=== PATIENT | male | born 1965 | race Caucasian/White ===

== ENCOUNTER 2018-12-06 18:45 | Emergency (ER) | payer BC, OTHER ==
--- NOTE | 2018-12-06 20:06 | ER ---
Nurse's Notes [facility] Name: Jean Pierre Cordero Age: 53 yrs Sex: Male : 1965 Arrival Date: 12/06/2018 Time: 18:49 Bed 25 Private MD: Diagnosis: Cellulitis of right great toe. Presentation: 12/06 19:13 Presenting complaint: Patient states: My right great toe has been swollen, started la1 Wednesday and is getting much worse, Seen at [facility] on Wednesday and given clinda and bacrtoban and it is getting worse. Transition of care: patient was not received from another setting of care. Onset of symptoms was December 06, 2018. Risk Assessment: Do you want to hurt yourself or someone else? Patient reports no desire to harm self or others. Initial Sepsis Screen: Does the patient meet any 2 criteria? No. Patient's initial sepsis screen is negative. Does the patient have a suspected source of infection? No. Patient's initial sepsis screen is negative. Care prior to arrival: None. 19:13 Method Of Arrival: Ambulatory la1 19:13 Acuity: EMMA 3 la1 Triage Assessment: 19:48 General: Appears in no apparent distress. comfortable, Behavior is calm, cooperative, ch appropriate for age. Pain: Complains of pain in right first toe and Right first toenail Pain currently is 7 out of 10 on a pain scale. Pain began gradually. Neuro: No deficits noted. Cardiovascular: No deficits noted. Respiratory: No deficits noted. GI: No signs and/or symptoms were reported involving the gastrointestinal system. : No signs and/or symptoms were reported regarding the genitourinary system. Derm: Skin is pink, warm \T\ dry. Wound noted medial aspect of right toes, right first toe and Right first toenail Wound is pt has swelling and redness to R great toe. R toe is twice the size of the left, dark red, entire toe up to foot. pt reports he is on antibiotics now. Historical: - Allergies: 19:14 No Known Allergies; la1 - PMHx: 19:14 None; la1 - Immunization history:: Adult Immunizations up to date. - Social history:: Smoking status: Patient uses tobacco products, smokes one pack cigarettes per day. - Ebola Screening: : No symptoms or risks identified at this time. Screenin:07 Abuse screen: Denies threats or abuse. Denies injuries from another. Nutritional screening: No deficits noted. Tuberculosis screening: No symptoms or risk factors identified. Fall Risk None identified. Assessment: 20:07 Reassessment: Patient appears in no apparent distress at this time. No changes from previously documented assessment. Patient and/or family updated on plan of care and expected duration. Pain level reassessed. Patient is alert, oriented x 3, equal unlabored respirations, skin warm/dry/pink. Vital Signs: 19:14 BP 142 / 89; Pulse 112; Resp 16; Temp 98.7; Pulse Ox 98% on R/A; Weight 99.79 kg; la1 Height 6 ft. 1 in. (185.42 cm); 19:14 Body Mass Index 29.03 (99.79 kg, 185.42 cm) ma1 ED Course: 18:49 Patient arrived in ED. mr 19:14 Aamir Askew MD is Attending Physician. ps1 19:14 Triage completed. la1 19:15 Arm band placed on left wrist. la1 19:31 Lesley Hillman, RN is Primary Nurse. ch 20:07 No apparent distress. Resting quietly. ch 20:07 Patient has correct armband on for positive identification. Bed in low position. Call light in reach. Side rails up X 1. 20:07 No provider procedures requiring assistance completed. Patient did not have IV access ch during this emergency room visit. Administered Medications: No medications were administered Outcome: 20:05 Discharge ordered by . ps1 20:07 Discharged to home ambulatory, with family. 20:07 Condition: unchanged 20:07 Discharge instructions given to patient, family, Instructed on discharge instructions, follow up and referral plans. medication usage, wound care, Demonstrated understanding of instructions, follow-up care, medications, wound care. 20:13 Patient left the ED. Signatures: Lesley Hillman, RN DEXTER SinclairaVeronica Lee, RN RN [facility] Aamir Askew MD MD ps1
--- NOTE | 2018-12-06 20:07 | EDPHYS ---
Physician Documentation [facility] Name: Jean Pierre Cordero Age: 53 yrs Sex: Male : 1965 Arrival Date: 12/06/2018 Time: 18:49 Bed 25 Private MD: ED Physician Aamir Askew HPI: 12/06 19:58 This 53 yrs old Male presents to ER via Ambulatory with complaints of Toe ps1 swelling. 19:58 patient states that he has a history of ingrown toe nails. He self treated at home and ps1 noticed a paronychia type infection. He went to urgent care yesterday for evaluation and was prescribed clindamycin and bactroban. He has taken 3 doses. He states that the inflammation is extending the length of his toe that is worse than yesterday. Pain is rated as moderate and worse with weight bearing. No fever. . Historical: - Allergies: 19:14 No Known Allergies; la1 - PMHx: 19:14 None; la1 - Immunization history:: Adult Immunizations up to date. - Social history:: Smoking status: Patient uses tobacco products, smokes one pack cigarettes per day. - Ebola Screening: : No symptoms or risks identified at this time. ROS: 19:58 Constitutional: Negative for fever, chills, and weight loss, Eyes: Negative for injury, ps1 pain, redness, and discharge, Cardiovascular: Negative for chest pain, palpitations, and edema, Respiratory: Negative for shortness of breath, cough, wheezing, and pleuritic chest pain, Abdomen/GI: Negative for abdominal pain, nausea, vomiting, diarrhea, and constipation, MS/Extremity: Negative for injury and deformity, Neuro: Negative for headache, weakness, numbness, tingling, and seizure, Psych: Negative for depression, anxiety, suicide ideation, homicidal ideation, and hallucinations. 19:58 Skin: Positive for cellulitis, of the right first toe. Exam: 19:58 Constitutional: This is a well developed, well nourished patient who is awake, alert, ps1 and in no acute distress. Head/Face: Normocephalic, atraumatic. Eyes: Pupils equal round and reactive to light, extra-ocular motions intact. Lids and lashes normal. Conjunctiva and sclera are non-icteric and not injected. Chest/axilla: Normal chest wall appearance and motion. Nontender with no deformity. No lesions are appreciated. Cardiovascular: Regular rate and rhythm. No gallops, murmurs, or rubs. Normal PMI, no JVD. No pulse deficits. Respiratory: Lungs have equal breath sounds bilaterally, clear to auscultation and percussion. No rales, rhonchi or wheezes noted. No increased work of breathing, no retractions or nasal flaring. Abdomen/GI: Soft, non-tender, with normal bowel sounds. No distension or tympany. No guarding or rebound. No evidence of tenderness throughout. MS/ Extremity: Pulses equal, no cyanosis. Neurovascular intact. Full, normal range of motion. Neuro: Awake and alert, GCS 15, oriented to person, place, time, and situation. Cranial nerves II-XII grossly intact. Sensory grossly intact. 19:58 Skin: Appearance: normal except for affected area, abscess, not appreciated, cellulitis, that is moderate, on the right first toe. Vital Signs: 19:14 BP 142 / 89; Pulse 112; Resp 16; Temp 98.7; Pulse Ox 98% on R/A; Weight 99.79 kg; la1 Height 6 ft. 1 in. (185.42 cm); 19:14 Body Mass Index 29.03 (99.79 kg, 185.42 cm) la1 MDM: 20:01 Data reviewed: vital signs, nurses notes, and as a result, I will discharge patient. ps1 Counseling: I had a detailed discussion with the patient and/or guardian regarding: the historical points, exam findings, and any diagnostic results supporting the discharge/admit diagnosis, to return to the emergency department if symptoms worsen or persist or if there are any questions or concerns that arise at home. ED course: Patient presenting with cellulitis of right great toe. Patient has had 3 doses of abx. He was not manifesting systemic symptoms and HR in triage had normalized in room during examination. He does not have fever and has an appropriate prescription for his diagnosis. Discussed at length with the patient options including I\T\D and decided that we would angelo the location and observe for determination of efficacy of the antibiotics that he just started. Strong precautions given to patient. Verbalized understanding and marked area. Salt water soaks and air dry. . 20:05 Patient medically screened. ps1 Administered Medications: No medications were administered Disposition: 12/06/18 20:05 Discharged to Home. Impression: Cellulitis of right great toe. . - Condition is Stable. - Discharge Instructions: Cellulitis, Adult. - Medication Reconciliation Form, Thank You Letter, Antibiotic Education, Prescription Opioid Use form. - Follow up: Private Physician; When: As needed; Reason: Further diagnostic work-up, Recheck today's complaints, Continuance of care, Re-evaluation by your physician. Follow up: Emergency Department; When: As needed; Reason: Fever > 102 F, Worsening of condition. - Problem is an ongoing problem. - Symptoms are unchanged. Signatures: Lesley Hillman RN RN ch Robby William RN RN la1 Aamir Askew MD MD ps1 Corrections: (The following items were deleted from the chart) 20:13 20:05 12/06/2018 20:05 Discharged to Home. Impression: Cellulitis of right great toe. . ch Condition is Stable. Forms are Medication Reconciliation Form, Thank You Letter, Antibiotic Education, Prescription Opioid Use. Follow up: Private Physician; When: As needed; Reason: Further diagnostic work-up, Recheck today's complaints, Continuance of care, Re-evaluation by your physician. Follow up: Emergency Department; When: As needed; Reason: Fever > 102 F, Worsening of condition. Problem is an ongoing problem. Symptoms are unchanged. ps1
[2018-12-06 21:26] VITALS: BP 142/89; TEMP 98.7; O2SAT 98
== END 2018-12-06 20:13 | disposition home or self-care (01) ==
LOC: ER 18:45
DX: L03.031 Cellulitis of right toe (principal); F17.210 Nicotine dependence, cigarettes, uncomplicated
CPT/HCPCS: 99281

== ENCOUNTER 2018-12-10 11:12 | Inpatient (IN) | payer BC ==
[2018-12-10 12:17] LABS: Absolute Lymphocytes (CBC) 2.5 K/uL (0.7-4.9); Hematocrit 43.7 % (39.6-49.0); Lymphocytes % 18.3 % (15.3-44.8); MPV 7.4 fL (7.6-11.3); RBC Red Blood Cell Count 5.01 M/uL (4.33-5.43)
--- NOTE | 2018-12-10 12:24 | RAD REPORT ---
EXAM DESCRIPTION: RAD - Foot Right 2 View - 12/10/2018 12:16 pm CLINICAL HISTORY: r/o osteo Great toe pain and swelling COMPARISON: No comparisons FINDINGS: The distal phalanx of the great toe shows areas of demineralization compatible with osteom yelitis. Moderate soft tissue swelling. No subcutaneous gas.
[2018-12-10 12:27] LABS: BUN Blood Urea Nitrogen 8 mg/dL (7-18); Bicarbonate 26 mmol/L (21-32); Glucose Level 324 mg/dL (74-106); Potassium 3.7 mmol/L (3.5-5.1); Sodium Level 134 mmol/L (136-145)
--- NOTE | 2018-12-10 12:35 | EDPHYS ---
Physician Documentation [facility] Name: Jean Pierre Cordero Age: 53 yrs Sex: Male : 1965 Arrival Date: 12/10/2018 Time: 11:14 Bed 16 Private MD: ED Physician Jack Curtis HPI: 12/10 12:49 This 53 yrs old Male presents to ER via Ambulatory with complaints of Toe kb Infection. 12:50 The patient presents with cellulitis of the dorsum of right foot and right first toe. kb Description: erythematous, swollen, warm. Onset: The symptoms/episode began/occurred 7 day(s) ago. Possible cause(s): unknown. Associated signs and symptoms: Pertinent positives: drainage, erythema, swelling. Modifying factors: the symptoms are alleviated by nothing, the symptoms are aggravated by nothing. Severity of symptoms: At their worst the symptoms were moderate, in the emergency department the symptoms are unchanged. The patient has not experienced similar symptoms in the past. The patient has been recently seen at the [facility], this week, for similar complaints. Pt reports he started getting an infection in his toe, went to a clinic and was started on Clindamycin on Wednesday. Came here on Wednesday, but the dr said he needed to give the antibiotics more time to work and evelin a line around border. Pt came today because redness is out of border drawn by and now it is draining.. Historical: - Allergies: 12:30 No Known Allergies; ph - PMHx: 12:30 Pneumonia; ph - Immunization history:: Adult Immunizations unknown. - Social history:: Smoking status: Patient uses tobacco products, cigars. - Ebola Screening: : No symptoms or risks identified at this time. ROS: 12:46 Constitutional: Negative for fever, chills, and weight loss, Neck: Negative for injury, kb pain, and swelling, Cardiovascular: Negative for chest pain, palpitations, and edema, Respiratory: Negative for shortness of breath, cough, wheezing, and pleuritic chest pain, Abdomen/GI: Negative for abdominal pain, nausea, vomiting, diarrhea, and constipation, Neuro: Negative for headache, weakness, numbness, tingling, and seizure. 12:46 MS/extremity: Positive for erythema, pain, swelling, tenderness, warmth, of the dorsum of right foot and right first toe. Exam: 12:48 Constitutional: This is a well developed, well nourished patient who is awake, alert, kb and in no acute distress. Head/Face: Normocephalic, atraumatic. ENT: Nares patent. No nasal discharge, no septal abnormalities noted. Tympanic membranes are normal and external auditory canals are clear. Oropharynx with no redness, swelling, or masses, exudates, or evidence of obstruction, uvula midline. Mucous membranes moist. Neck: Trachea midline, no thyromegaly or masses palpated, and no cervical lymphadenopathy. Supple, full range of motion without nuchal rigidity, or vertebral point tenderness. No Meningismus. Chest/axilla: Normal chest wall appearance and motion. Nontender with no deformity. No lesions are appreciated. Cardiovascular: Regular rate and rhythm with a normal S1 and S2. No gallops, murmurs, or rubs. Normal PMI, no JVD. No pulse deficits. Respiratory: Lungs have equal breath sounds bilaterally, clear to auscultation and percussion. No rales, rhonchi or wheezes noted. No increased work of breathing, no retractions or nasal flaring. Abdomen/GI: Soft, non-tender, with normal bowel sounds. No distension or tympany. No guarding or rebound. No evidence of tenderness throughout. Neuro: Awake and alert, GCS 15, oriented to person, place, time, and situation. Cranial nerves II-XII grossly intact. Motor strength 5/5 in all extremities. Sensory grossly intact. Cerebellar exam normal. Normal gait. 12:48 Skin: cellulitis, that is moderate, on the dorsum of right foot and right first toe. Vital Signs: 12:28 BP 150 / 96; Pulse 91; Resp 18; Temp 98.8(O); Pulse Ox 97% on R/A; Weight 98.43 kg; ph Height 6 ft. 1 in. (185.42 cm); Pain 0/10; 13:30 BP 147 / 92; Pulse 87; Resp 16; Pulse Ox 97% on R/A; ph 14:39 BP 143 / 91; Pulse 83; Resp 18; Temp 98.6; Pulse Ox 97% on R/A; ph 12:28 Body Mass Index 28.63 (98.43 kg, 185.42 cm) ph MDM: 11:35 Patient medically screened. kb 11:47 Data reviewed: vital signs, nurses notes. Data interpreted: Pulse oximetry: on room air kb is 100 %. Interpretation: normal. 12:30 Counseling: I had a detailed discussion with the patient and/or guardian regarding: the kb historical points, exam findings, and any diagnostic results supporting the discharge/admit diagnosis, lab results, radiology results, the need for further work-up and treatment in the hospital. 12/10 11:39 Order name: CBC with Diff; Complete Time: 12:19 kb 12/10 11:39 Order name: Basic Metabolic Panel; Complete Time: 12:28 kb 12/10 11:39 Order name: Blood Culture Adult (2) kb 12/10 11:39 Order name: Procalcitonin; Complete Time: 12:55 kb 12/10 11:39 Order name: Lactate; Complete Time: 12:35 kb 12/10 11:41 Order name: Hemoglobin A1c kb 12/10 11:39 Order name: IV Start; Complete Time: 12:02 kb 12/10 11:41 Order name: Foot Right 2 View XRAY; Complete Time: 12:27 kb Administered Medications: 11:41 CANCELLED (Physician Discretion): Zosyn 3.375 grams IVPB once over 60 mins; (mix in NS kb 100 mL) 12:50 Drug: Cefepime 1 grams Route: IVPB; Rate: 200 ml/hr; Infused Over: 30 mins; Site: left ph forearm; 13:40 Follow up: Response: No adverse reaction; IV Status: Completed infusion ph 13:44 Drug: vancoMYCIN 1 grams Route: IVPB; Infused Over: 2 hrs; Site: left forearm; ph 14:37 Follow up: Response: No adverse reaction; IV Status: Infusion continued upon admission ph Disposition: 15:12 Co-signature as Attending Physician, Jack Curtis MD I agree with the assessment and kdr plan of care. Disposition: 12/10/18 12:35 Hospitalization ordered by Balwinder Osborn for Inpatient Admission. Preliminary diagnosis are Osteomyelitis, unspecified, Cellulitis of right toe - failed outpatient treatment. - Bed requested for Telemetry/MedSurg (Inpatient). - Status is Inpatient Admission. ph - Condition is Stable. - Problem is new. - Symptoms are unchanged. UTI on Admission? No Signatures: Dispatcher [employer] [facility] Marta Martinez, REAL ESTATE APPRAISER-C REAL ESTATE APPRAISER-Ckb Jack Curtis MD MD kdr Solis, Maria ms Hall, Patricia RN RN ph Corrections: (The following items were deleted from the chart) 11:41 11:41 Zosyn 3.375 grams IVPB once over 60 mins; (mix in NS 100 mL) ordered. kb kb 14:31 12:35 Hospitalization Ordered by Balwinder Osborn for Inpatient Admission. Preliminary ms diagnosis is Osteomyelitis, unspecified; Cellulitis of right toe - failed outpatient treatment. Bed requested for Telemetry/MedSurg (Inpatient). Status is Inpatient Admission. Condition is Stable. Problem is new. Symptoms are unchanged. UTI on Admission? No. kb 15:02 14:31 12/10/2018 12:35 Hospitalization Ordered by Balwinder Osborn for Inpatient ph Admission. Preliminary diagnosis is Osteomyelitis, unspecified; Cellulitis of right toe - failed outpatient treatment. Bed requested for Telemetry/MedSurg (Inpatient). Status is Inpatient Admission. Condition is Stable. Problem is new. Symptoms are unchanged. UTI on Admission? No. ms
--- NOTE | 2018-12-10 12:35 | ER ---
Nurse's Notes [facility] Name: Jean Pierre Cordero Age: 53 yrs Sex: Male : 1965 Arrival Date: 12/10/2018 Time: 11:14 Bed 16 Private MD: Diagnosis: Osteomyelitis, unspecified;Cellulitis of right toe-failed outpatient treatment Presentation: 12/10 11:40 Presenting complaint: Patient states: Wound to R great toe, states, " It started w/ an ph ingrown toenail, I took antibiotics by mouth but they aren't helping." Reports fever, chills and nausea. Transition of care: patient was not received from another setting of care. Onset of symptoms was December 10, 2018. Risk Assessment: Do you want to hurt yourself or someone else? Patient reports no desire to harm self or others. Initial Sepsis Screen: Does the patient meet any 2 criteria? No. Patient's initial sepsis screen is negative. Does the patient have a suspected source of infection? Yes: Skin breakdown/wound. Care prior to arrival: None. 11:40 Method Of Arrival: Ambulatory ph 11:40 Acuity: EMMA 3 ph Historical: - Allergies: 12:30 No Known Allergies; ph - PMHx: 12:30 Pneumonia; ph - Immunization history:: Adult Immunizations unknown. - Social history:: Smoking status: Patient uses tobacco products, cigars. - Ebola Screening: : No symptoms or risks identified at this time. Screenin:31 Abuse screen: Denies threats or abuse. Denies injuries from another. Nutritional ph screening: No deficits noted. Tuberculosis screening: No symptoms or risk factors identified. Fall Risk None identified. Assessment: 11:45 General: Appears in no apparent distress. comfortable, well groomed, Behavior is calm, ph cooperative, appropriate for age, Reports chills for fever for. Pain: Denies pain. Neuro: Level of Consciousness is awake, alert, obeys commands, Oriented to person, place, time, situation. Cardiovascular: Capillary refill < 3 seconds in bilateral fingers Patient's skin is warm and dry. Respiratory: Airway is patent Respiratory effort is even, unlabored, Respiratory pattern is regular, symmetrical. GI: Reports nausea, Patient currently denies abdominal pain, diarrhea, vomiting. Derm: Skin is healthy with good turgor, Skin is pink, warm \\T\\ dry. Wound noted right first toe and Right first toenail. Musculoskeletal: Swelling present in right first toe and Right first toenail. 12:36 Reassessment: Patient appears in no apparent distress at this time. Patient and/or ph family updated on plan of care and expected duration. Pain level reassessed. Patient is alert, oriented x 3, equal unlabored respirations, skin warm/dry/pink. Pt ambulated to restroom w/ steady gait, awaiting room assignment. 12:50 Reassessment: Patient appears in no apparent distress at this time. Patient is alert, ph oriented x 3, equal unlabored respirations, skin warm/dry/pink. Hospitalist at bedside. 14:00 Reassessment: Patient appears in no apparent distress at this time. Patient and/or ph family updated on plan of care and expected duration. Pain level reassessed. Patient is alert, oriented x 3, equal unlabored respirations, skin warm/dry/pink. 14:42 Reassessment: Patient appears in no apparent distress at this time. Patient and/or ph family updated on plan of care and expected duration. Pain level reassessed. Patient is alert, oriented x 3, equal unlabored respirations, skin warm/dry/pink. Report called to [place]. Vital Signs: 12:28 BP 150 / 96; Pulse 91; Resp 18; Temp 98.8(O); Pulse Ox 97% on R/A; Weight 98.43 kg; ph Height 6 ft. 1 in. (185.42 cm); Pain 0/10; 13:30 BP 147 / 92; Pulse 87; Resp 16; Pulse Ox 97% on R/A; ph 14:39 BP 143 / 91; Pulse 83; Resp 18; Temp 98.6; Pulse Ox 97% on R/A; ph 12:28 Body Mass Index 28.63 (98.43 kg, 185.42 cm) ph ED Course: 11:14 Patient arrived in ED. mr 11:35 Marta Martinez [facility]-C [facility]. kb 11:35 Jack Curtis MD is Attending Physician. kb 11:37 Holly Law RN is Primary Nurse. ph 12:00 Inserted saline lock: 20 gauge in left forearm, using aseptic technique. Blood ph collected. 12:16 Foot Right 2 View XRAY In Process Unspecified. EDMS 12:28 Triage completed. ph 12:31 Arm band placed on Patient placed in an exam room, on a stretcher. ph 12:31 Patient has correct armband on for positive identification. Bed in low position. Call ph light in reach. Side rails up X 1. Pulse ox on. NIBP on. Door closed. Noise minimized. 12:35 Balwinder Osborn is Hospitalizing Provider. kb 14:35 No provider procedures requiring assistance completed. Patient admitted, IV remains in ph place. Administered Medications: 11:41 CANCELLED (Physician Discretion): Zosyn 3.375 grams IVPB once over 60 mins; (mix in NS kb 100 mL) 12:50 Drug: Cefepime 1 grams Route: IVPB; Rate: 200 ml/hr; Infused Over: 30 mins; Site: left ph forearm; 13:40 Follow up: Response: No adverse reaction; IV Status: Completed infusion ph 13:44 Drug: vancoMYCIN 1 grams Route: IVPB; Infused Over: 2 hrs; Site: left forearm; ph 14:37 Follow up: Response: No adverse reaction; IV Status: Infusion continued upon admission ph Outcome: 12:35 Decision to Hospitalize by Provider. kb 14:38 Admitted to Med/surg accompanied by tech, via wheelchair, room 207, with chart. ph 14:38 Condition: stable 14:38 Instructed on the need for admit. 15:02 Patient left the ED. ph Signatures: Dispatcher [employer] [facility] Marta Martinez, PEDIGREE RESEARCHER-Ramón PEDIGREE RESEARCHER-Shayan Victoriano Veronica ingram Holly Law RN RN ph Corrections: (The following items were deleted from the chart) 12:33 11:40 Presenting complaint: Patient states: Wound to L great toe, states, " It started ph w/ an ingrown toenail, I took antibiotics by mouth but they aren't helping." Reports fever, chills and nausea ph
[2018-12-10] MEDS ORDERED: CEFEPIME 1 GM/100 ML BAG IV ONE (12:42)
[2018-12-10] MEDS ORDERED: VANCOMYCIN/NS 1 gm 1 GM/250 ML BAG IVPB ONE (13:00)
--- NOTE | 2018-12-10 13:04 | P.HP ---
Certification for Inpatient With expected LOS: >2 Midnights Practitioner: I am a practitioner with admitting privileges, knowledge of patient current condition, hospital course, and medical plan of care. Services: Services provided to patient in accordance with Admission requirements found in Title 42 Section 412.3 of the Code of Federal Regulations Patient History Date of Service: 12/10/18 Reason for admission: Swollen tender right great toe History of Present Illness: 53-year-old gentleman with a history of hypertension presents to the emergency department with a complaint of redness and swelling of the right great toe which has been present for about 1 week. Patient was prescribed clindamycin for cellulitis at an urgent Care. His toe got worse and stated he presented to an emergency department 4 days ago and was told to continue the clindamycin. He reported to the emergency department because he stole kept getting worse and started discharging. In the ED, patient noted to have mild leukocytosis, afebrile. X-ray of the right foot reports demineralization of the distal phalanx of the right great toe consistent with osteomyelitis. Also noted elevated blood sugar. Patient denies any history of diabetes. He is admitted for further management. Allergies No Known Allergies Allergy (Verified 12/29/12 16:00) Home Medications: Cefuroxime Axetil [Ceftin] 500 mg PO BID #14 tablet 01/06/13 predniSONE [Deltasone] 20 mg PO DAILY #14 tab 01/06/13 - Past Medical/Surgical History Diabetic: No -: HTN -: Pneumonia - Family History Family History: Reviewed- Non-Contributory - Social History Smoking Status: Current some day smoker (Smokes cigar) Alcohol use: No CD- Drugs: No Caffeine use: Yes Review of Systems Other: General: No fever, no malaise, no unintentional weight loss. Eyes: No eye discharge, Respiratory: No cough, no shortness of breath. CVS: No chest pain, no palpitation, no lightheadedness. GI: No abdominal pain, no nausea no vomit, no constipation, no diarrhea. Genitourinary: No dysuria, no urinary frequency, no incontinence, no hematuria. Musculoskeletal: No joint pains, no gait instability. Neurology: No headache, no asymmetric, weakness, no problem with swallowing. Except as documented, all other systems reviewed and negative. Physical Examination - Physical Exam General: Alert, In no apparent distress, Oriented x3 HEENT: Atraumatic, Normocephalic, Mucous membr. moist/pink Neck: Supple, JVD not distended, No Thyromegaly Respiratory: Clear to auscultation bilaterally, Normal air movement Cardiovascular: No edema, Normal pulses (Good dorsalis pedis pulses bilaterally. ), Regular rate/rhythm, Normal S1 S2, No murmurs Capillary refill: <2 Seconds Gastrointestinal: Normal bowel sounds, Soft and benign, Non-distended, No tenderness Musculoskeletal: Swelling (Right great toe ulcer with erythema, serous discharge from the nail bed.) Integumentary: Skin breakdown (Right great toe), Erythema Neurological: Normal strength at 5/5 x4 extr, Cranial nerves 3-12 intact - Studies Laboratory Data (last 24 hrs) 12/10/18 12:00: Sodium 134 L, Potassium 3.7, BUN 8, Creatinine 0.79, Glucose 324 H 12/10/18 12:00: WBC 13.8 H, Hgb 15.2, Hct 43.7, Plt Count 349 Assessment and Plan - Problems (Diagnosis) (1) Cellulitis of toe of right foot Current Visit: Yes Status: Acute (2) Osteomyelitis Current Visit: Yes Status: Acute (3) Hyperglycemia Current Visit: Yes Status: Acute - Plan Admit to F. Patient has hyperglycemia and will need double antibiotic coverage. Start IV vancomycin and Zosyn. Follow blood cultures obtained in the ED General surgery consult MRI of the right foot to confirm osteomyelitis. Check hemoglobin A1c Insulin sliding scale for glucose management. IV morphine p.r.n. for pain - Advance Directives Does patient have a Living Will: No Does patient have a Durable POA for Healthcare: No
[2018-12-10] MEDS ORDERED: MORPHINE 2 MG/ML SYR IV PRN (15:18)
[2018-12-10] MEDS ORDERED: ONDANSETRON 4 MG/2 ML VIAL IV PRN (15:18)
[2018-12-10] MEDS ORDERED: ACETAMINOPHEN 500 MG TAB PO PRN (15:18)
[2018-12-10 15:23] VITALS: BMI 28.6
[2018-12-10] MEDS: ENOXAPARIN 40 MG/0.4 ML SQ SCH (15:51)
[2018-12-10] MEDS: NA CHLORIDE 0.9% 1,000 ML IV SCH (15:51)
[2018-12-10] MEDS ORDERED: VANCOMYCIN 1.5 GM in NA CHLORIDE 0.9% 500 ML IVPB ONE (16:00)
[2018-12-10] MEDS ORDERED: PNEUMOCOCCAL VACCINE 0.5 ML IMVAC ONE (16:00)
[2018-12-10] MEDS ORDERED: INFLUENZA VACCINE (for 3y+) 0.5 ML DOSE IMVAC ONE (16:00)
[2018-12-10] MEDS: INSULIN -REGULAR HUMAN 50 UNIT/0.5 ML ML SQ SCH ×2 (16:02→21:07)
[2018-12-10 16:08] LABS: Protime INR 1.12
[2018-12-11] MEDS: PIPER/TAZO/NS 3.375gm 3.375 GM/100 ML BAG IVPB SCH ×3 (00:07→16:40)
[2018-12-11] MEDS: NA CHLORIDE 0.9% 1,000 ML IV SCH ×3 (00:55→21:18)
[2018-12-11] MEDS ORDERED: VANCOMYCIN/NS 1 gm 1 GM/250 ML BAG IVPB SCH (01:00)
[2018-12-11] MEDS: VANCOMYCIN 1.75 GM in NA CHLORIDE 0.9% 500 ML IVPB SCH ×2 (04:18→18:07)
[2018-12-11 06:33] LABS: Absolute Lymphocytes (CBC) 1.5 K/uL (0.7-4.9); Basophils % 0.8 % (0-1.3); Hematocrit 44.1 % (39.6-49.0); Lymphocytes % 10.6 % (15.3-44.8); MPV 7.5 fL (7.6-11.3); RBC Red Blood Cell Count 5.04 M/uL (4.33-5.43)
[2018-12-11 06:46] LABS: BUN Blood Urea Nitrogen 7 mg/dL (7-18); Bicarbonate 26 mmol/L (21-32); Glucose Level 235 mg/dL (74-106); Potassium 3.8 mmol/L (3.5-5.1); Sodium Level 138 mmol/L (136-145)
[2018-12-11] MEDS: INSULIN -REGULAR HUMAN 50 UNIT/0.5 ML ML SQ SCH ×4 (07:30→20:57)
--- NOTE | 2018-12-11 08:43 | P.PN ---
Subjective Date of Service: 12/11/18 Chief Complaint: Swollen tender right great toe The right great toe swelling has decreased compared to yesterday. No change in erythema or discharge from the nail bed. Patient denies any pain. He has no new complain. He has been afebrile. Physical Examination - Vital Signs Temperature: 98.1 F Blood Pressure: 134/81 Pulse: 88 Respirations: 18 Pulse Ox (%): 95 - Physical Exam General: Alert, In no apparent distress, Oriented x3 HEENT: Mucous membr. moist/pink Neck: Supple, JVD not distended Respiratory: Clear to auscultation bilaterally, Normal air movement Cardiovascular: No edema, Regular rate/rhythm, Normal S1 S2 Gastrointestinal: Soft and benign, Non-distended, No tenderness Musculoskeletal: Other (Right great toe swelling, erythema and discharge from the nail bed.) Neurological: Normal strength at 5/5 x4 extr - Studies Laboratory Data (last 24 hrs) 12/10/18 12:00: Sodium 134 L, Potassium 3.7, BUN 8, Creatinine 0.79, Glucose 324 H 12/10/18 12:00: WBC 13.8 H, Hgb 15.2, Hct 43.7, Plt Count 349 Assessment And Plan - Current Problems (Diagnosis) (1) Cellulitis of toe of right foot Current Visit: Yes Status: Acute (2) Osteomyelitis Current Visit: Yes Status: Acute (3) Hyperglycemia Current Visit: Yes Status: Acute - Plan Continue IV vancomycin and Zosyn. Blood cultures are pending. Follow blood cultures. Consult general surgery placed. MRI of the right foot to confirm osteomyelitis. Hemoglobin A1c is pending Insulin sliding scale for glucose management. IV morphine p.r.n. for pain wound care.
[2018-12-11] MEDS: ENOXAPARIN 40 MG/0.4 ML SQ SCH (09:00)
--- NOTE | 2018-12-11 11:18 | CON ---
Date of Consultation: 12/11/2018 Brief History Of Present Illness: Patient is a 53-year-old gentleman with past medical his tory of hypertension and no past medical followup with a primary care physician. He states he does n ot visit doctors and has not had any contact with physicians in several years and as such, his medica l conditions are essentially unknown, who presents to the hospital with approximately 1-week history of swelling, pain to the right great toe. He noted that he got a significant enlarged. There was so me redness surrounding the area and drainage started to occur. He had some numbness to the feet and toes as well, but this is more of a chronic situation as such. He is able to move the toe with minim al pain, but did note the increased drainage and redness. He came to the emergency room with the abo ve-stated complaint. He had seen an urgent care center and was placed on clindamycin at that time, b ut did not get significant improvement. He was noted to have leukocytosis also. Past Medical History: Significant for hypertension and pneumonia. Past Surgical History: None. Home Medications: Ceftin and Deltasone. Allergies: NO KNOWN DRUG ALLERGIES. Family History: Reviewed, noncontributory. Social History: He smokes cigarettes and cigars. He drinks alcohol recreationally. Denies any recr eational drug use. He works in the [employer]. Review of Systems: 10-point review of systems other than HPI, denies. Physical Examination: Vital Signs: At the time of examination, his BMI is 28.6. His blood pressure 134/81, pulse is 88, r espiratory rate 18, temperature 98.1. General: He is awake, alert, and oriented. Psychiatric: He is appropriate and conversive. HEENT: He is normocephalic. Sclerae anicteric. Mucous membranes are moist. Oropharynx is clear. He has multiple teeth missing and very poor dentition. Neck: Supple. No JVD. Chest: Normal expansion and excursion. Cardiovascular: Regular rate and rhythm. Pulmonary: Clear to auscultation bilaterally. Abdomen: Soft, nontender. Extremities: Focused examination of the right lower extremity shows a large swollen right great toe with surrounding cellulitis and purulent drainage. There is minimal tenderness to palpation. There is discoloration of the toe. Obviously, it appears to be a wet gangrenous situation. The remainder of his examination is essentially unremarkable. Laboratory Data: White blood cell count of 14.0, hemoglobin is 14.9, hematocrit 44.1, platelet count is 358. His PT is 13.2; INR 1.12; sodium 138; potassium 3.8; chloride 106; carbon dioxide 26; BUN 7 ; creatinine 0.7; glucose is 235, down from 324 on admission. Lactic acid was 1.6 on admission. His procalcitonin is less than 0.05. He had imaging performed, which included an x-ray of the foot, whi ch was officially read. Distal phalanx of the great toe shows areas of demineralization compatible w ith osteomyelitis. Moderate soft tissue swelling. No subcutaneous gas. Assessment And Plan: This is a 53-year-old male, who comes in with an obvious wet gangrene and osteo myelitic changes to the right great toe. 1.IV fluid hydration. 2.Antibiotic coverage per Dr. Osborn. 3.Continue medical management. 4.I have explained the risks, benefits, and alternatives of partial and potentially complete amputat ion of the right great toe, including but not limited to bleeding, infection, damage to surrounding t issues, need for ongoing wound care, need for further operation or procedures. Patient agrees to pro ceed as indicated. Thank you for this interesting consult. SONALI/DEMETRIUS Voice ID: [id number] Report ID: [id number]
--- NOTE | 2018-12-11 11:48 | P.PN ---
Date of Service: 12/11/18 Patient made aware his options of treatment are: 1. Prolonged antibiotic therapy about 6 weeks followed by evaluation for response to therapy and amputation if the infection does not respond to the antibiotics 2. Surgical amputation for the wet gangrene and osteomyelitis. Patient preferred the 2nd option stating he cannot do prolonged antibiotic therapy. His medical condition is optimal for surgery.
[2018-12-11] MEDS ORDERED: PROPOFOL 200 MG/20 ML VIAL IV ONE (12:14)
[2018-12-11] MEDS ORDERED: FENTANYL CITR 100 MCG/2 ML ONE (12:14)
[2018-12-11] MEDS ORDERED: MIDAZOLAM HCL 2 MG/2 ML INJ ONE ×2 (12:14→12:39)
--- NOTE | 2018-12-11 13:28 | P.OP ---
Preoperative diagnosis: Osteomyelitis and Gangrene of RIGHT great toe Postoperative diagnosis: Osteomyelitis and Gangrene of RIGHT great toe Primary procedure: Partial Amputation of RIGHT great toe Anesthesia: GETA Estimated blood loss: <10cc Specimen: Distal interphalangeal joint, part of proximal Findings: Osteomyelitis to distal phanlanx, eburnation of proximal phalanx Complications: None Transferred to: Recovery Room Condition: Good
[2018-12-11 21:46] VITALS: O2SAT 95
--- NOTE | 2018-12-11 22:17 | OP ---
Date of Procedure: 12/11/2018 Surgeon: Joseph Chamberlain MD, Preoperative Diagnosis: Osteomyelitis and gangrene of right great toe. Postoperative Diagnosis: Osteomyelitis and gangrene of right great toe. Procedure Performed: Partial amputation of the right great toe to include the distal phalanx and olga f the proximal phalanx of the right great toe. Anesthesia: General endotracheal. Estimated Blood Loss: Less than 10 mL. Specimens: Distal interphalangeal joint and part of the proximal phalanx. Findings: 1.Osteomyelitis of the distal phalanx. 2.Eburnation of the proximal phalanx. 3.Infection extending around the interphalangeal joint between the distal and proximal. Complications: None. Condition: Transferred to recovery room in good condition. Additional specimen was culture sent. Procedure In Detail: After informed consent was obtained, patient was prepped and draped in the usua l sterile fashion after adequate anesthesia achieved based on a plantar pedicled flap I demarcated th e area of the skin over the right great toe. I then used a 15 blade down to dissect circumferentiall y around the previously marked plantar flap and dissected down using electrocautery down to the inter phalangeal joint. I removed the distal phalanx and soft tissue with this after culturing it and sent off for pathologic examination. I then examined the interphalangeal joint and found that there was evidence of infection in this area and as such I did a partial removal of the distal phalanx as there was eburnation evident on the bone as well. I then used a rasp to smooth out and bevel the edges of the bone. I irrigated the area copiously multiple times with irrigation until clear. I then also a chieved hemostasis with electrocautery, irrigated the area once again and then brought the plantar fl ap over to the incision and reapproximated using vertical mattress sutures to reapproximate circumfer ential area around the flap. I then used interrupted simple 2-0 nylons to reapproximate the remainde r of the tissue. A sterile dressing was then placed over the top, patient tolerated the procedure we ll without evidence of complication and transferred to PACU in good condition all counts were correct at the end of the case. SONALI/DEMETRIUS Voice ID: [id number] Report ID: [id number]
[2018-12-12] MEDS: PIPER/TAZO/NS 3.375gm 3.375 GM/100 ML BAG IVPB SCH ×2 (00:17→08:45)
[2018-12-12 03:22] LABS: Absolute Lymphocytes (CBC) 1.6 K/uL (0.7-4.9); Basophils % 0.6 % (0-1.3); Hematocrit 40.1 % (39.6-49.0); Lymphocytes % 13.6 % (15.3-44.8); MPV 7.3 fL (7.6-11.3)
[2018-12-12 03:28] LABS: BUN Blood Urea Nitrogen 7 mg/dL (7-18); Bicarbonate 29 mmol/L (21-32); Glucose Level 191 mg/dL (74-106); Magnesium 2.2 mg/dL (1.8-2.4); Potassium 3.6 mmol/L (3.5-5.1); Sodium Level 141 mmol/L (136-145)
[2018-12-12] MEDS: VANCOMYCIN 1.75 GM in NA CHLORIDE 0.9% 500 ML IVPB SCH (04:24)
[2018-12-12] MEDS: NA CHLORIDE 0.9% 1,000 ML IV SCH (07:18)
[2018-12-12] MEDS: ENOXAPARIN 40 MG/0.4 ML SQ SCH (08:40)
[2018-12-12] MEDS: INSULIN -REGULAR HUMAN 50 UNIT/0.5 ML ML SQ SCH (08:45)
--- NOTE | 2018-12-12 11:00 | P.DS ---
Admission Date: 12/10/18 Discharge Date: 12/12/18 Primary Care Provider: Dr. Goetz Disposition: ROUTINE DISCHARGE Discharge Condition: GOOD Reason for Admission: Swollen tender right great toe Consultations: Surgery-Dr. Chamberlain Procedures: Xray: COMPARISON: No comparisons FINDINGS: The distal phalanx of the great toe shows areas of demineralization compatible with osteomyelitis. Moderate soft tissue swelling. No subcutaneous gas. Surgery: Date of procedure: 12/11/2018 Surgeon: Dr. Joseph Chamberlain Preop diagnosis: Osteomyelitis and gangrene of right great toe Postop diagnosis: Osteomyelitis and gangrene of right great toe Primary procedure: Partial amputation of right great toe Findings: Osteomyelitis to the distal phalanx, eburnation of proximal phalanx Complications: None Medical Problem List: Right great toe osteomyelitis and gangrene Diabetes mellitus type 2 with hyperglycemia, new diagnosis Brief History of Present Illness: 53-year-old male presented to the emergency room with right great toe swelling, pain. Patient had been seen at urgent care for cellulitis to the right great toe. This worsened. Patient return to the ER. Patient now with osteomyelitis of the right great toe. Patient was admitted for further evaluation and treatment. Hospital Course: Patient presented with right great toe swelling, pain. Patient found to have gangrene and osteomyelitis of the right great toe. Patient seen and evaluated by surgery. Options of care including long-term IV antibiotic therapy versus amputation was presented. Patient opted for amputation. Patient had partial amputation of the right great toe. Patient had no complications post surgery. Patient tolerated the procedure well. At discharge patient will continue with Bactrim DS 1 pill twice daily and doxycycline 100 mg 1 pill twice daily for 7 days. Patient will also be provided tramadol 50 mg 1 pill 3 times a day as needed for pain. Patient will continue with current wound care(daily wound care - remove dressings, irrigate with saline, place xerform gauze on suture line, cover with 4x4 gauze, wrap with kerlix, sunita wrap to ankle, elevate). Recommend follow up in 1-[address] Chamberlain. Patient found to have hyperglycemia. Patient found to have new diagnosis of diabetes mellitus type 2. Hemoglobin A1c 9.9. At discharge patient will start metformin 1000 mg 1 pill twice daily. Recommend to maintain blood sugars less 140 fasting and less than 200 after meals. Further adjustment can be done by his PCP. Patient will continue with a 2000 ADA diet. Education on diabetes will be provided. Recommend to recheck lab-BMP in 1-2 weeks to monitor his progress. Vital Signs/Physical Exam: Temp Pulse Resp BP Pulse Ox 98.7 F 87 18 145/84 H 95 12/12/18 08:00 12/12/18 08:00 12/12/18 08:00 12/12/18 08:00 12/12/18 08:00 General: Alert, In no apparent distress, Oriented x3, Cooperative HEENT: Atraumatic Neck: Supple Respiratory: Clear to auscultation bilaterally, Normal air movement Cardiovascular: Normal pulses, Regular rate/rhythm Gastrointestinal: Normal bowel sounds, Soft and benign, Non-distended, No tenderness, No masses, No rebound, No guarding Musculoskeletal: Other (Right foot bandaged) Neurological: Normal speech, Normal strength at 5/5 x4 extr, Normal tone, Normal affect Lymphatics: No axilla or inguinal lymphadenopathy Laboratory Data at Discharge: WBC 11.5 K/uL (4.3-10.9) H D 12/12/18 03:03 Hgb 13.7 g/dL (13.6-17.9) 12/12/18 03:03 Hct 40.1 % (39.6-49.0) 12/12/18 03:03 Plt Count 334 K/uL (152-406) 12/12/18 03:03 PT 13.2 SECONDS (9.5-12.5) H 12/10/18 15:45 INR 1.12 12/10/18 15:45 Sodium 141 mmol/L (136-145) 12/12/18 03:03 Potassium 3.6 mmol/L (3.5-5.1) 12/12/18 03:03 BUN 7 mg/dL (7-18) 12/12/18 03:03 Creatinine 0.80 mg/dL (0.55-1.3) 12/12/18 03:03 Glucose 191 mg/dL (74-106) H 12/12/18 03:03 Magnesium 2.2 mg/dL (1.8-2.4) 12/12/18 03:03 Home Medications: Mupirocin Cream [Bactroban 2% Cream*] 1 appl TOP BID 10/12/19 Doxycycline Hyclate 100 mg PO BID #14 tablet 12/12/18 Metformin HCl 1,000 mg PO BID #60 tablet 12/12/18 Sulfamethoxazole/Trimethoprim [Bactrim Ds Tablet] 1 each PO BID #14 tablet 12/12 Tramadol HCl [Ultram] 50 mg PO TID PRN #20 tablet 12/12/18 New Medications: Doxycycline Hyclate 100 mg PO BID #14 tablet Metformin HCl 1,000 mg PO BID #60 tablet Sulfamethoxazole/Trimethoprim [Bactrim Ds Tablet] 1 each PO BID #14 tablet Tramadol HCl [Ultram] 50 mg PO TID PRN #20 tablet PRN Reason: Pain Scale 2-4 (Mild) Patient Discharge Instructions: 1. Recommend follow up with PCP in 1 week to follow up this hospitalization. 2. Patient presented with right great toe swelling, pain. Patient found to have gangrene and osteomyelitis of the right great toe. Patient seen and evaluated by surgery. Options of care including long-term IV antibiotic therapy versus amputation was presented. Patient opted for amputation. Patient had partial amputation of the right great toe. Patient had no complications post surgery. Patient tolerated the procedure well. At discharge patient will continue with Bactrim DS 1 pill twice daily and doxycycline 100 mg 1 pill twice daily for 7 days. Patient will also be provided tramadol 50 mg 1 pill 3 times a day as needed for pain. Patient will continue with current wound care(daily wound care- remove dressings, irrigate with saline, place xerform gauze on suture line, cover with 4x4 gauze, wrap with kerlix, sunita wrap to ankle, elevate). Recommend follow up in 1-[address] Chamberlain - call [phone] for appointment (go to [email or web address] BEFORE appointment to fill out new patient. packet. 3. Patient found to have hyperglycemia. Patient found to have new diagnosis of diabetes mellitus type 2. Hemoglobin A1c 9.9. At discharge patient will start metformin 1000 mg 1 pill twice daily. Recommend to maintain blood sugars less 140 fasting and less than 200 after meals. Further adjustment can be done by his PCP. Patient will continue with a 2000 ADA diet. Education on diabetes will be provided. Recommend to recheck lab-BMP in 1-2 weeks to monitor his progress. Diet: ADA Activity: Fall precautions Time spent managing pt's care (in minutes): 55
[2018-12-12 13:51] VITALS: BP 129/75; TEMP 98.8
== END 2018-12-12 13:31 | disposition home or self-care (01) | DRG 504 ==
LOC: ER 11:12 → ERHOLD 13:18 → 2ND 14:43
PROVIDERS: ADMIT Internal Medicine; ATTEND Internal Medicine
PROC: 0Y6P0Z1 Detachment at Right 1st Toe, High, Open Approach (ICD-10-PCS; principal; 2018-12-11 11:30)
DX: M86.171 Other acute osteomyelitis, right ankle and foot (principal); E11.52 Type 2 diabetes mellitus with diabetic peripheral angiopathy with gangrene; I96 Gangrene, not elsewhere classified; E11.65 Type 2 diabetes mellitus with hyperglycemia; E11.69 Type 2 diabetes mellitus with other specified complication; F17.210 Nicotine dependence, cigarettes, uncomplicated; I10 Essential (primary) hypertension; Z23 Encounter for immunization
CPT/HCPCS: 36415; 80048; 80202; 82962; 83036; 83605; 83735; 84145; 85025; 85610; 87040; 87070; 87075; 87205; 88305; 88311; 90471; 90670; 96365; 96367; 99285; J0692; J1650; J2250; J2543; J2704; J3010; J3370; J7030; J7040; Q2035